=== PATIENT | female | born 1980 | race Caucasian/White ===

== ENCOUNTER 2017-02-24 11:22 | Emergency (ER) | payer OTHER ==
[~2017-02-24 11:22] MED LIST: BUSPAR5 M1 PO; CELEXA20 MG PO; CLEOCIN HCL300 M1 PO; CLIDINIUM-CDP C1 CAP PO; DOXYCYCLINE150 MG PO; ELIMITE60 GM TOP; HYDROXYZINE HCL25 M1 PO; IBUPROFEN800 MG PO; KEFLEX PO; KEFLEX500 MG PO; NAPROSYN500 MG PO; PERCOCET 5/321 UDTAB PO; PROMETHAZINE HC25 MG PO; TYLOX1 CAP 5/50 PO; VIBRAMYCIN100 M1 PO
[2017-02-24 12:03] LABS: BASOPHIL% 0.3 % (0-2.5); HEMATOCRIT 37.5 % (35.0-45.0); HEMOGLOBIN 12.4 gm/dL (12.0-16.0); LYMPHOCYTE% 8.1 % (17.0-45.0); MEAN CELL VOLUME 89.2 FL (83-96); MEAN CORPUSCULAR HEMOGLOBIN 29.6 PG (28-34); MEAN CORPUSCULAR HGB CONC 33.1 g/dL (30-36); MEAN PLATELET VOLUME 8.4 FL (6.5-11.5); MONOCYTE# 0.4 X10e3 (0-1.0); MONOCYTE% 3.7 % (3.0-12.0); NEUTROPHIL# 10.5 X10e3 (1.5-7.1); NEUTROPHIL% 87.9 % (40-75); PLATELET COUNT 228 X10e3 (140-420); RED CELL DISTRIBUTION WIDTH 12.7 % (11.0-15.5)
[2017-02-24 12:06] LABS: DIFF IND NO
[2017-02-24 12:28] LABS: ALBUMIN SERUM 4.5 g/dL (3.5-5.0); BILIRUBIN, DIRECT 0.1 mg/dL (0.0-0.2); BILIRUBIN,INDIRECT 0.4 mg/dL (0.0-0.9); BILIRUBIN,TOTAL 0.5 mg/dL (0.2-2.0); BUN/CREATININE RATIO 11.11; CALCIUM SERUM 9.1 mg/dL (8.4-10.2); CREATININE SERUM 0.9 mg/dL (0.6-1.4); GLOM FILT RATE Estimated 81.2 mL/min (>60); POTASSIUM 3.6 mmol/L (3.5-5.1); PROTEIN TOTAL SERUM 7.8 g/dL (6.0-8.3)
[2017-02-24 12:39] LABS: URINE SOURCE CLEAN CATCH
[2017-02-24 12:48] LABS: URINE APPEARANCE CLOUDY; URINE BILIRUBIN NEG (NEG); URINE BLOOD TRACE (NEG); URINE COLOR YELLOW; URINE GLUCOSE 250 MG/DL (NEG); URINE KETONE NEG (NEG); URINE LEUKOCYTE ESTERASE NEG (NEG); URINE NITRATE NEG (NEG); URINE PH 5.5 (5-8); URINE PROTEIN 1+ (NEG)
[2017-02-24 12:51] LABS: CULTURE INDICATED? YES; URINE BACTERIA AUWI 3+ (NEGATIVE); URINE SQUAMOUS EPITHELIAL CELL MOD /[HPF]
[2017-02-24 12:58] LABS: URINE MUCUS PRESENT
== END 2017-02-24 13:30 | disposition home or self-care (01) ==
LOC: CED 11:22
PROVIDERS: Student in an Organized Health Care Education/Training Program
DX: R11.2 Nausea with vomiting, unspecified (principal); F31.9 Bipolar disorder, unspecified; Z98.51 Tubal ligation status; Z88.2 Allergy status to sulfonamides; Z88.8 Allergy status to other drugs, medicaments and biological substances
CPT/HCPCS: 36415; 80048; 80076; 81003; 82150; 83690; 84703; 85025; 87086; 96361; 96374; 96375; 99284; C9113; J2405

== ENCOUNTER 2017-04-26 17:46 | Emergency (ER) | payer OTHER ==
[~2017-04-26] VITALS: Ht 157.5 cm; Wt 78.9 kg
--- NOTE | ~2017-04-26 | CR72 ---
[facility] A Service of [facility] & [facility] RADIOLOGY TEXT RESULTS PATIENT: ARNAV ALLAN LOCATION: [facility] : 76 UNIT #: [id number] AGE: [address]: Manoj Brock MD SEX: F ORDER DR: [id number] [facility] [address] [place], [place] [address] [id number] E MR#: [id number] Acc #: [id number] NAME: ARNAV ALLAN : 1980 SEX: F STUDY DATE/TIME: 04/26/2017 18:03 UNIT: [facility] ROOM: STUDY DESCRIPTION: CR Chest Single View Portable Attending Physician: Manoj Brock M.D. Ordering Physician: Manoj Brock M.D. Primary Care Physician: Agueda Quintana Aprn MEDICAL IMAGING REPORT This report is preliminary unless electronic signature is present EXAM Portable chest 04/26/2017. HISTORY 36-year-old female with shortness of air and chest pain beginning today. COMPARISON Chest 09/14/2016. FINDINGS Frontal chest demonstrates clear lungs. No pleural effusion or pneumothorax. Heart size and mediastinum are normal. Pulmonary vasculature normal. IMPRESSION No acute cardiopulmonary findings. Dictated by... Mau Patel M.D. THIS IS AN ELECTRONICALLY VERIFIED REPORT Mau Patel M.D. at 04/27/2017 8:10 AM ULICES/caprice TD: 04/27/2017 07:42 JOB #: [id number] MEDICAL IMAGING REPORT Page 1 of 1 COPY
--- NOTE | ~2017-04-26 | EKG ---
PATIENT: ARNAV ALLAN UNIT #: [id number] Ventricular Rate: 81 BPM Atrial Rate: 81 BPM P-R Interval: 148 ms QRS Duration: 74 ms Q-T Interval: 366 ms QTC Calculation(Bezet): 425 ms P [place]: 41 degrees Calculated R [place]: 48 degrees Calculated T [place]: 48 degrees Diagnosis Line: Normal sinus rhythm Diagnosis Line: Normal ECG Diagnosis Line: Diagnosis Line: Confirmed by CAITLIN AMANDA MD ([id number]) on Diagnosis Line: 04/27/2017 10:53:37 AM INTERPRETING MD: TREASURE SANCHES
[2017-04-26 18:20] LABS: BASOPHIL# 0.1 X10e3 (0-0.3); BASOPHIL% 0.6 % (0-2.5); EOSINOPHIL# 0.1 X10e3 (0-0.7); EOSINOPHIL% 1.1 % (0.0-7.0); HEMATOCRIT 37.7 % (35.0-45.0); HEMOGLOBIN 12.9 gm/dL (12.0-16.0); LYMPHOCYTE# 2.8 X10e3 (1.0-3.5); LYMPHOCYTE% 25.5 % (17.0-45.0); MEAN CELL VOLUME 89.3 FL (83-96); MEAN CORPUSCULAR HEMOGLOBIN 30.5 PG (28-34); MEAN CORPUSCULAR HGB CONC 34.2 g/dL (30-36); MEAN PLATELET VOLUME 8.7 FL (6.5-11.5); MONOCYTE# 0.6 X10e3 (0-1.0); MONOCYTE% 5.8 % (3.0-12.0); NEUTROPHIL# 7.2 X10e3 (1.5-7.1); PLATELET COUNT 227 X10e3 (140-420); RED BLOOD COUNT 4.23 X10e (3.90-5.30); WHITE BLOOD COUNT 10.8 X10e3 (4.0-10.5)
[2017-04-26 18:21] LABS: DIFF IND NO
[2017-04-26 18:28] LABS: POC - CKMB <1.0 ng/mL (0.0-7.9); POC - TROPONIN <0.05 ng/mL (<=0.05)
[2017-04-26 18:31] LABS: INR 0.9; PARTIAL THROMBOPLASTIN TIME 26.1 SECONDS (23.5-31.3); PROTHROMBIN TIME (PATIENT) 10.3 SECONDS (10.0-11.7)
[2017-04-26 18:39] LABS: ALBUMIN SERUM 4.5 g/dL (3.5-5.0); ALKALINE PHOSPHATASE 56 U/L (32-92); ALT (SGPT) 12 U/L (10-40); AST (SGOT) 16 U/L (10-42); BILIRUBIN,TOTAL 0.4 mg/dL (0.2-2.0); BLOOD UREA NITROGEN 14 mg/dL (9-23); BUN/CREATININE RATIO 15.55; CALCIUM SERUM 9.5 mg/dL (8.4-10.2); CARBON DIOXIDE 29 mmol/L (22-31); CHLORIDE 102 mmol/L (100-111); CREATININE SERUM 0.9 mg/dL (0.6-1.4); GLOM FILT RATE Estimated 81.2 mL/min (>60); GLUCOSE FASTING 102 mg/dL (70-110); PROTEIN TOTAL SERUM 7.7 g/dL (6.0-8.3); SODIUM 137 mmol/L (135-145)
[2017-04-26 18:40] LABS: BILIRUBIN, DIRECT <0.1 mg/dL (0.0-0.2); BILIRUBIN,INDIRECT 0.3 mg/dL (0.0-0.9)
[2017-04-26 20:04] LABS: POC - CKMB <1.0 ng/mL (0.0-7.9); POC - TROPONIN <0.05 ng/mL (<=0.05)
== END 2017-04-26 20:10 | disposition home or self-care (01) ==
LOC: CED 17:46
PROVIDERS: Emergency Medicine
DX: R07.9 Chest pain, unspecified (principal); Z88.2 Allergy status to sulfonamides; Z88.6 Allergy status to analgesic agent
CPT/HCPCS: 36415; 71010; 80048; 80076; 82553; 84484; 84703; 85025; 85610; 85730; 93005; 99285